=== PATIENT | female | born 1990 | race African-American/Black ===

== ENCOUNTER 2017-03-28 18:56 | Emergency (ER) | payer OTHER ==
[~2017-03-28] VITALS: Ht 162.6 cm; Wt 136.1 kg
[~2017-03-28 18:56] MED LIST: MACROBID 100 M100 M1 PO; NOHOMEMEDICATIONS; NORFLEX100 MG PO; ONDANSETRON HCL4 M2 PO; PHENTERMINE HCL15 MG; PROTONIX40 MG PO; ULTRAM 50MG TAB50 MG PO
[2017-03-28] MEDS ORDERED: HYDROCODONE-AP1 EAC6 PO (20:12)
[2017-03-28] MEDS ORDERED: IBUPROFEN 800800 M1 PO (20:12)
[2017-03-28 20:55] VITALS: BP 149/70
== END 2017-03-28 20:56 | disposition home or self-care (01) ==
LOC: ER 18:56
DX: S82.892A Other fracture of left lower leg, initial encounter for closed fracture (principal); F10.99 Alcohol use, unspecified with unspecified alcohol-induced disorder; F12.10 Cannabis abuse, uncomplicated; Z90.49 Acquired absence of other specified parts of digestive tract; W10.9XXA Fall (on) (from) unspecified stairs and steps, initial encounter; Y93.01 Activity, walking, marching and hiking; Y92.89 Other specified places as the place of occurrence of the external cause; Y99.8 Other external cause status

== ENCOUNTER 2018-03-22 18:41 | Emergency (ER) | payer OTHER ==
[~2018-03-22] VITALS: Ht 162.6 cm; Wt 132.4 kg
[~2018-03-22 18:41] MED LIST changes: +HYDROCODONE-AP1 EAC6 PO; +IBUPROFEN 800800 M1 PO
[2018-03-22 19:07] LABS: URINE BILIRUBIN NEGATIVE (Negative); URINE BLOOD NEGATIVE (Negative); URINE CLARITY CLEAR; URINE COLOR YELLOW; URINE GLUCOSE-RANDOM* NEGATIVE (Negative); URINE KETONES NEGATIVE (Negative); URINE LEUKOCYTES NEGATIVE (Negative); URINE NITRITE NEGATIVE (Negative); URINE PROTEIN (DIPSTICK) NEGATIVE (Negative); URINE SPECIFIC GRAVITY >= 1.030 (1.005-1.035)
[2018-03-22 19:27] LABS: HEMATOCRIT 41.2 % (37.0-47.0); HEMOGLOBIN 14.2 gm/dL (12.0-15.0); MCH 32.2 pg (26.0-34.0); MCHC 34.4 g/dL (28.0-37.0); MCV 93.7 fL (80.0-100.0); PLATELET COUNT 240 thou/uL (150-400); RBC 4.39 mil/uL (4.20-5.00); RDW 12.8 % (10.5-14.5); WBC 5.4 thou/uL (4.0-11.0)
[2018-03-22 19:36] LABS: ANION GAP 8 mmol/L (7-16); BUN 7 mg/dL (7-18); CALCIUM 8.7 mg/dL (8.5-10.1); CHLORIDE 104 mmol/L (98-107); CO2 25 mmol/L (21-32); CREATININE 0.9 mg/dL (0.6-1.0); GLUCOSE 93 mg/dL (74-106); POTASSIUM 3.6 mmol/L (3.5-5.1); SODIUM 137 mmol/L (136-145)
[2018-03-22 19:41] LABS: ALBUMIN 3.4 g/dL (3.4-5.0); DIRECT BILIRUBIN < 0.1 mg/dL (<0.1-0.3); SGOT 22 U/L (15-37); SGPT 27 U/L (30-65); TOTAL BILIRUBIN 0.2 mg/dL (<0.1-1.0); TOTAL PROTEIN 7.6 g/dL (6.4-8.2)
[2018-03-22] MEDS ORDERED: NEXPLANON68 MG SUBQ (19:45)
[2018-03-22] MEDS ORDERED: ZOFRAN ODT4 MG PO (19:52)
[2018-03-22] MEDS ORDERED: PHENERGAN 25 MG25 M1 PO (19:52)
[2018-03-22 20:03] LABS: ABSOLUTE NEUTROPHILS 2.1 thou/uL (1.4-8.2)
[2018-03-22 20:31] VITALS: BP 123/60
== END 2018-03-22 21:29 | disposition home or self-care (01) ==
LOC: ER 18:41
PROVIDERS: Emergency Medicine
DX: R11.2 Nausea with vomiting, unspecified (principal); R19.7 Diarrhea, unspecified; R10.9 Unspecified abdominal pain; R07.0 Pain in throat; N93.9 Abnormal uterine and vaginal bleeding, unspecified; K21.9 Gastro-esophageal reflux disease without esophagitis; Z90.49 Acquired absence of other specified parts of digestive tract

== ENCOUNTER 2018-09-30 02:49 | Emergency (ER) | payer OTHER ==
[~2018-09-30] VITALS: Ht 162.6 cm; Wt 127.0 kg
[~2018-09-30 02:49] MED LIST changes: +NEXPLANON68 MG SUBQ; +PHENERGAN 25 MG25 M1 PO; +ZOFRAN ODT4 MG PO
[2018-09-30] MEDS ORDERED: CEPACOL SORE T1 EAC7 PO (04:19)
[2018-09-30 04:38] VITALS: BP 155/78
== END 2018-09-30 04:38 | disposition home or self-care (01) ==
LOC: ER 02:49
DX: J02.0 Streptococcal pharyngitis (principal); Z90.49 Acquired absence of other specified parts of digestive tract; Z98.890 Other specified postprocedural states

== ENCOUNTER 2018-12-23 18:09 | Emergency (ER) | payer OTHER ==
[~2018-12-23] VITALS: Ht 162.6 cm; Wt 141.1 kg
[~2018-12-23 18:09] MED LIST changes: +CEPACOL SORE T1 EAC7 PO
[2018-12-23 20:33] VITALS: BP 174/91
== END 2018-12-23 20:51 | disposition home or self-care (01) ==
LOC: ER 18:09
DX: R51 Headache (principal); Z90.49 Acquired absence of other specified parts of digestive tract; Z98.890 Other specified postprocedural states

== ENCOUNTER 2019-09-07 09:45 | Inpatient (IN) | payer OTHER ==
[~2019-09-07] VITALS: Ht 162.6 cm; Wt 129.3 kg
[2019-09-07 09:47] VITALS: BP 157/102
[2019-09-07] MEDS ORDERED: TRAMADOL 50 MG50 MG PO (09:56)
[2019-09-07] MEDS ORDERED: IBUPROFEN 800800 M1 PO (09:58)
[2019-09-07] MEDS ORDERED: FLEXERIL PO (09:58)
[2019-09-07 10:11] LABS: ABSOLUTE NEUTROPHILS 4.5 thou/uL (1.4-8.2); BASOPHILS 0.8 % (0.0-2.0); EOSINOPHILS 1.4 % (0.0-3.0); HEMATOCRIT 43.3 % (37.0-47.0); HEMOGLOBIN 14.7 gm/dL (12.0-15.0); LYMPHOCYTES 24.4 % (24.0-44.0); MCH 32.4 pg (26.0-34.0); MCHC 33.9 g/dL (28.0-37.0); MCV 95.6 fL (80.0-100.0); MONOCYTES 8.2 % (1.0-8.0); PLATELET COUNT 292 thou/uL (150-400); POLYS 65.2 % (36.0-66.0); RBC 4.53 mil/uL (4.20-5.00); RDW 12.7 % (10.5-14.5); WBC 6.9 thou/uL (4.0-11.0)
[2019-09-07 10:19] LABS: CREATININE 1.1 mg/dL (0.6-1.0)
[2019-09-07 10:25] LABS: ALBUMIN 4.3 g/dL (3.4-5.0); DIRECT BILIRUBIN 0.1 mg/dL (<0.1-0.3); MAGNESIUM 1.9 mg/dL (1.8-2.4); TOTAL BILIRUBIN 0.4 mg/dL (<0.1-1.0); TOTAL PROTEIN 9.3 g/dL (6.4-8.2)
[2019-09-07 10:49] LABS: URINE BILIRUBIN NEGATIVE (Negative); URINE BLOOD NEGATIVE (Negative); URINE CLARITY CLOUDY; URINE COLOR YELLOW; URINE GLUCOSE-RANDOM* NEGATIVE (Negative); URINE KETONES NEGATIVE (Negative); URINE LEUKOCYTES-REFLEX TRACE (Negative); URINE NITRITE-REFLEX NEGATIVE (Negative); URINE PROTEIN (DIPSTICK) TRACE (Negative); URINE SPECIFIC GRAVITY >= 1.030 (1.005-1.035); URINE UROBILINOGEN 0.2 E.U./dl (0.2-1.0)
[2019-09-07 11:37] VITALS: BP 136/70
[2019-09-07 15:54] VITALS: BP 135/66
[2019-09-07 20:14] VITALS: BP 153/96
[2019-09-08 04:15] VITALS: BP 149/62
[2019-09-08 05:38] LABS: ALBUMIN 3.3 g/dL (3.4-5.0); CALCIUM 9.1 mg/dL (8.5-10.1); POTASSIUM 3.8 mmol/L (3.5-5.1); TOTAL BILIRUBIN 0.5 mg/dL (<0.1-1.0); TOTAL PROTEIN 7.6 g/dL (6.4-8.2)
--- NOTE | 2019-09-08 05:41 | NUR ---
PT CAME TO UNIT AROUND 1900. ADMISSION ASSESSMENT COMPLETED. INCISION DRY AND INTACT. PT EDUCATED ON USE OF CALL LIGHT, SCDS APPLIED. HYDOCODONE GIVEN FOR PAIN W/ NO RELIEF. IV MORPHINE GIVEN, PROVIDED SOME RELIEF. PT COMPLAINING OF PAIN ABOUT Q2 HRS, NOTHING SEEMS TO HELP. URINATING FINE IN TOILET W/ STANDBY. IV FLUIDS RUNNING AT 125ML/HR. HICCUPS/BELCHING A LOT. CONSENT FORMS IN CHART.
[2019-09-08 05:46] LABS: HEMATOCRIT 38.1 % (37.0-47.0); MCH 32.1 pg (26.0-34.0); MCHC 33.3 g/dL (28.0-37.0); MCV 96.4 fL (80.0-100.0); RBC 3.95 mil/uL (4.20-5.00); RDW 13.1 % (10.5-14.5); WBC 13.2 thou/uL (4.0-11.0)
[2019-09-08 06:07] LABS: HEMOGLOBIN 12.7 gm/dL (12.0-15.0)
[2019-09-08 08:01] VITALS: BP 136/71
--- NOTE | 2019-09-08 15:23 | NUR ---
ASSUMED CARE AT 0700. PT AOX4, VSS, DRESSING DRY & INTACT. PAIN IS CONTROLLED WITH ORAL ANALGESIC. PT RATES PAIN 4/10 AT THIS TIME. IV IN LEFT AC IS PATENT AND NS RUNNING ORDERED. PT UP AD LATRICIA TO BATHROOM. MIDLINE INCISION IS DRY & INTACT. PT TOLERATING REG DIET. CALL LIGHT IN REACH/PERSONAL ITEMS. WILL CONTINUE TO MONITOR PT.
[2019-09-08 18:58] VITALS: BP 143/87
--- NOTE | 2019-09-09 03:44 | NUR ---
PT STILL COMPLAINS OF PAIN TO ABDOMINAL INCISION SITE.RELIEF OBTAINED WITH PERCOCET. AFEBRILE. PASSING FLATUS. CONCERNED ABOUT CONSTIPATION-WILL DEFER TO DAYSHIFT FOR PATIENT WAS NOT WANTING ANY LAXATIVE TONIGHT-SHE TOOK HS COLACE.UP AD LATRICIA. PROGRESSING TOWARDS CARE GOALS.
[2019-09-09 04:58] VITALS: BP 156/85
[2019-09-09 07:10] VITALS: BP 166/85
[2019-09-09 15:25] VITALS: BP 145/71
--- NOTE | 2019-09-09 17:28 | NUR ---
ASSUMED CARE OF PT AT 0700. PT VSS, PAIN CONTROLLED BY ORAL PAIN ANALGESIC. PT IS UP AD LATRICIA. PT REPORTS FLATUS BUT STILL HASN'T HAD A BM. NURSE ENCOURAGED PT TO AMBULATE IN THE SOUZA. PT RECEIVED STOOL SOFTNER AND MIRALAX THIS AM. PT TOLERATING REG DIET. CALL LIGHT IN REACH, WILL CONTINUE TO MONITOR.
[2019-09-09 19:20] VITALS: BP 153/91
--- NOTE | 2019-09-09 20:06 | PATH ---
[facility] [address] [place] [address] PATHOLOGY RPT PROCEDURE Name: CIARRA ARCHIBALD Room #: 441-P ADM IN M.R.#: [id number] Admission: 09/07/19 Date of : 89 Discharge: Report #: [id number] Path Case #: [id number] [facility] Accession Number: [id number] . 01 Material submitted: . ovary - RIGHT OVARY. Modifiers: right . 01 Clinical history: . Large cyst removal . 01 Frozen section diagnosis: . . /QMS . 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 - Negative for borderline proliferation or malignancy. - Background ovarian parenchyma showing physiologic changes. (IUV:yony; 09/09/2019) QMS 09/09/2019 1503 Local . 02 Electronically signed: . Crystal Lynch MD, Pathologist NPI- [id number] . 01 Gross description: . The specimen is received in formalin, labeled "Ciarra Archibald, right ovary". Received is a 228 Gram, 9.6 x 7.7 x 5.7 cm cystic ovary. The surface is pink-shah to pink-arenas in appearance with moderate vasculature identified. Sectioning reveals four cystic structures ranging in size from 2.2 to 5.4 cm filled with clear fluid, yellow fluid, and thick red-brown fluid admixed with blood coagulum. The cyst sabillon are smooth in appearance with no gross evidence of papillary excrescences. A slight amount of normal ovarian stroma is identified. The specimen is submitted representatively in cassettes A1 through A4. (CAA; 09/08/2019) QAC/QAC 09/08/2019 1317 Local . 02 Pathologist provided ICD-10: D27.0 . 02 CPT . 411499 Specimen Comment: A courtesy copy of this report has been sent to [phone] Specimen Comment: Report sent to Performed at: [address] [place] [address] PATHOLOGY RPT PROCEDURE Name: CIARRA ARCHIBALD Room #: [facility] IN M.R.#: [id number] Admission: 09/07/19 Date of : 89 Discharge: Report #: [id number] Path Case #: [id number] [facility] [address] [place] [address] [address] [facility], [place] [id number] MD Eric Hughes MD Phone: [phone] Performed at: [address], [place], [place] [id number] MD Crystal Lynch MD Phone: [phone]
[2019-09-10 04:30] VITALS: BP 124/71
--- NOTE | 2019-09-10 06:04 | NUR ---
PT AOX4. PT REPORTS PAIN 5/10 IN LOWER ABDOMEN. PT RECEIVING PRN PO OXYCODONE Q4HR AND PRN PO IBUPROFEN Q6HR. PT PROVIDED WITH PILLOWS FOR ABDOMINAL SUPPORT. PT REPORTS LACK OF BOWEL MOVEMENT, ENCOURAGED FLUID INTAKE AND REPOSITIONING. INTERVENTIONS EFFECTIVE, PT REPORTS BOWEL MOVEMENT. PT ALSO REPORTS SOA WITH EXERTION, ENCOURAGED OXYGEN. PT REFUSED OXYGEN. HOB ELEVATED, FAN TURNED ON, AND COOL TOWEL PROVIDED. INTERVENTIONS PARTIALLY EFFECTIVE PT REPORTS DECREASED SOA. INCENTIVE SPIROMETER AT BEDSIDE, ENCOURAGED USE. PT ENCOURAGED TO TURN, COUGH, AND DEEP BREATH. PT VERBALIZED AND DEMONSTRATES UNDERSTANDING. PT AMBULATES WITH STAND BY ASSIST TO BATHROOM. PT CONTINUES TO REST WITHOUT INTERRUPTION. ENCOURAGED TO NOTIFY STAFF FOR ALL NEEDS. CALL LIGHT WITHIN REACH, BED ALARM ON, BED IN LOWEST POSITION. WILL CONTINUE TO MONITOR.
[2019-09-10 07:10] VITALS: BP 164/88
[2019-09-10] MEDS ORDERED: PERCOCET PO (10:24)
[2019-09-10] MEDS ORDERED: IBUPROFEN 200200 M1 PO (10:24)
[2019-09-10 10:34] VITALS: BP 164/88
--- NOTE | 2019-09-10 11:36 | NUR ---
Assumed care of pt at 0700. Pt c/o abdominal pain. Prn pain meds administered. Up ad bonita. Family at bediside. Discharge to home.
== END 2019-09-10 11:35 | disposition home or self-care (01) | DRG 743 ==
LOC: ER 09:45 → EROBS 11:39 → TBA 15:59 → 4S 19:49
PROVIDERS: Emergency Medicine; ADMIT Obstetrics & Gynecology
PROC: 0UT00ZZ Resection of Right Ovary, Open Approach (ICD-10-PCS; principal; 2019-09-07)
DX: N83.511 Torsion of right ovary and ovarian pedicle (principal); N83.201 Unspecified ovarian cyst, right side; I10 Essential (primary) hypertension; R10.2 Pelvic and perineal pain; Z90.49 Acquired absence of other specified parts of digestive tract; Z79.899 Other long term (current) drug therapy; Z82.49 Family history of ischemic heart disease and other diseases of the circulatory system; Z79.1 Long term (current) use of non-steroidal anti-inflammatories (NSAID)
CPT/HCPCS: 10195; 50010; 50101; 50249; 50386; 50400; 50445; 50455; 50555; 52265; 53307; 56524; 56525; 56526; 62110; 62900; 70005

== ENCOUNTER 2019-10-04 13:16 | Emergency (ER) | payer OTHER ==
[~2019-10-04] VITALS: Ht 172.7 cm; Wt 113.4 kg
[~2019-10-04 13:16] MED LIST changes: +FLEXERIL PO; +IBUPROFEN 200200 M1 PO; +PERCOCET PO; +TRAMADOL 50 MG50 MG PO
[2019-10-04] MEDS ORDERED: TOBRADEX EYE DRO5 ML OPHTHALMIC (14:43)
[2019-10-04 15:10] VITALS: BP 131/74
== END 2019-10-04 15:11 | disposition home or self-care (01) ==
LOC: ER 13:16
DX: H10.33 Unspecified acute conjunctivitis, bilateral (principal); J06.9 Acute upper respiratory infection, unspecified; Z90.49 Acquired absence of other specified parts of digestive tract; Z98.890 Other specified postprocedural states